=== PATIENT | female | born 1965 | race Caucasian/White ===

== ENCOUNTER 2021-09-27 11:25 | Emergency (ER) | payer OTHER, SELFPAY ==
--- NOTE | ~2021-09-27 | XR_ITS ---
EXAMINATION: XR foot RT min 3V, XR ankle RT min 3V EXAM DATE: 09/27/2021 12:20 (accession [id number]), 09/27/2021 12:22 (accession [id number]) INDICATION: Right medial ank/foot bruising, swelling, pain after injury yesterday. Initial encounter. TECHNIQUE: Right foot dorsoplantar, lateral and oblique projections obtained and reviewed. Right ank le frontal, lateral and oblique projections obtained and reviewed. There is no prior study for raven zamora. FINDINGS: There is acute closed posttraumatic oblique fracture through the right fibular distal metap hysis extending into the distal tibiofibular syndesmosis. There is overlying soft tissue swelling. Th is finding has been indicated, marked on the examination for review, clinical correlation. Mortise re lationship appears maintained. Right foot exam demonstrates small ossification along the dorsal aspect of the metatarsal bases at th e Lisfranc joint, age indeterminate but could be an acute minimally displaced avulsion fracture. Unce rtain exact donor site. There is swelling overlying the dorsal aspect of the forefoot including this location. Phalanges are unremarkable. IMPRESSION: 1. Acute nondisplaced right fibular distal metaphyseal fracture into syndesmosis. 2. Minimally displaced metatarsal base avulsion dorsally. Reviewed, dictated and finalized at location B. ER PLACER IMPRESSION: 1. Acute nondisplaced right fibular distal metaphyseal fracture into syndesmos is. 2. Minimally displaced metatarsal base avulsion dorsally.
[2021-09-27 11:36] VITALS: BP 175/111; PULSE 106; RESP 18; TEMP 36.4; O2SAT 97
[2021-09-27] MEDS: KETOROLAC (*BKC) 60 MG/2 ML VIAL IM (11:57)
[2021-09-27 11:58] VITALS: PULSE 106
[2021-09-27] MEDS: METOPROLOL TARTRATE 50 MG TAB PO (11:58)
[2021-09-27 12:02] VITALS: PULSE 106
--- NOTE | 2021-09-27 12:46 | ED.LOWEXIN ---
HPI - Extremity Injury (Lower) General Chief Complaint: Extremity Injury, Lower Stated Complaint: ANKLE PAIN Source: patient Mode of arrival: ambulatory Limitations: no limitations History of Present Illness HPI Narrative: is a 56-year-old female that while out in her yd misstepped and twisting her right foot and ankle causing pain with bruising and swelling has occurred this past Friday, swelling continues with some pain about a 6/10 tried some [id number] medication with minimal relief a blood pressure has been elevated with no chest pain no shortness of breath no abdominal pain. In her right foot and ankle there is a decreased range of motion secondary to bruising swelling with no numbness or tingling. complaint: ankle injury Onset (ago): day(s) Injury: Right: ankle ( pain with swelling and decreased range of motion) and foot ( bruising of the foot and swelling) Type of Injury: inversion Place: home Severity: moderate Severity scale (1-10): 6 Relieving factors: NSAID Related Data Allergies Allergy/AdvReac Type Severity Reaction Status Date / Time No Known Allergies Allergy Verified 09/27/21 11:54 Review of Systems Review of Systems: All systems reviewed & are unremarkable except as noted in HPI and below PMFSH Past Medical History Medical History HTN (hypertension) Exam Const: General: no acute distress HENMT: Head: normal to inspection Eyes: Conjunctivae: conjunctivae normal Pupils: Equal, round and reactive pupils present EOM: EOMs intact bilaterally Neck: Neck: normal visual inspection, no lymphadenopathy and no meningeal signs Chest: Chest palpation & inspection: normal inspection of the chest Resp: Effort & Inspection: normal respiratory effort Auscultation: clear to auscultation bilaterally Cardio: Rate: regular rate Rhythm: regular rhythm GI: GI Palp: Yes Soft to palpation Back/Spine/Pelvis: Back: no CVA tenderness Skin: General skin exam: normal color Rashes: no rashes Extrem: General: edema Other: right foot and ankle swelling and decreased range of motion secondary to bruising and swelling Psych: Mental Status: mental status grossly normal Affect: normal affect Course Course Emergency Course: patient had x-rays performed showing acute fracture of the distal right fibula nondisplaced patient did receive IM Toradol and a dose of Lopressor for elevated blood pressure. Vital Signs Vital signs: Vital Signs Temperature 36.4 C 09/27/21 11:36 Pulse Rate 106 H 09/27/21 11:36 Respiratory Rate 18 09/27/21 11:36 Blood Pressure 175/111 H 09/27/21 11:36 Pulse Oximetry 97 09/27/21 11:36 Temperature 36.4 C 09/27/21 11:36 Pulse Rate 106 H 09/27/21 12:02 Respiratory Rate 18 09/27/21 11:36 Blood Pressure 175/111 H 09/27/21 11:36 Pulse Oximetry 97 09/27/21 11:36 Critical Care Time Critical Care Time Critical Care Time: No Discharge Plan Discharge Clinical Impression: HTN (hypertension) Qualifiers: Hypertension type: unspecified Qualified Code(s): I10 - Essential (primary) hypertension Closed fibular fracture Qualifiers: Encounter type: initial encounter Fibula location: distal Fracture morphology: other fracture Laterality: right Qualified Code(s): S82.831A - Other fracture of upper and lower end of right fibula, initial encounter for closed fracture Patient Disposition: Home, Self-Care Condition: Stable Instructions: Antibiotic Form, Ankle Fracture (ED) Additional Instructions: take medicine as prescribed and follow with some orthopedic physician for further evaluation and treatment. Prescriptions: New oxycodone-acetaminophen [Percocet] 5-325 mg tablet 1 tablet PO Q6H PRN (Reason: pain) Qty: 14 RF: 0 Follow-up/Referrals: UNKNOWN,DOCTOR [Primary Care Provider] - Time of Disposition: 12:54
[2021-09-27 13:01] VITALS: BP 178/113; PULSE 100; RESP 20; TEMP 36.6; O2SAT 99
== END 2021-09-27 13:08 | disposition home or self-care (01) ==
PROVIDERS: Emergency Provider Emergency Medicine
DX: S82.831A Other fracture of upper and lower end of right fibula, initial encounter for closed fracture (principal); I10 Essential (primary) hypertension; X50.1XXA Overexertion from prolonged static or awkward postures, initial encounter
CPT/HCPCS: 73610; 73630; 96372; 99283; A9270; J1885

== ENCOUNTER 2025-05-10 13:50 | Outpatient (CLI) | payer MEDICAID, SELFPAY ==
--- OUTSIDE RECORDS SUMMARY | 2025-05-10 13:54 | XMS_ITS | Clinical Summary ---
Author Organization [facility] Address [address] [place] [address] Care Team Providers Care Personnel Analyst Name Role Phone Unavailable Primary Care Provider Unavailabl e Allergies Active Allergy Reactions Criticality Noted Date Comments Hydrocodone-Acetaminophen Itching Low 02/01/2024 Medications atenoloL (TENORMIN) 25 mg tablet Take 0.5 Tablets (12.5 mg) by mouth every 12 hours. 4 Active lactulose (ENULOSE) 20 gram/30 mL Take 10 mL by mouth 2 times daily. 4 Active ipratropium-albu teroL (DUONEB) 0.5 mg-3 mg(2.5 mg base)/3 mL Solution for Nebulization Take 3 mL by inhalation every 6 hours as needed for Shortness of Breath or Wheezing. 4 Active furosemide (LASIX) 20 mg tablet Take 1 Tablet (20 mg) by mouth daily. 4 Active multivitamin with folic acid 400 mcg Tablet tablet Take 1 Tablet by mouth daily. 4 Active rifAXIMin (XIFAXAN) 550 mg Tablet Take 1 Tablet (550 mg) by mouth 2 times daily. 4 Active spironolactone (ALDACTONE) 50 mg tablet 1 Tablet (50 mg) by NG Tube route daily. 4 Active Additional Information Patient taking differently:50 mgOralDAILY, Reported on 01/14/2024 Active Problems Problem Noted Date Diagnosed Date History of falling 01/14/2024 Hypotension due to hypovolemia 01/14/2024 Hypokalemia 01/14/2024 Generalized muscle weakness 12/29/2023 Steroid-induced hyperglycemia 12/28/2023 Acute respiratory failure with hypoxia Shock 12/27/2023 Leukocytosis 12/27/2023 E. coli UTI (urinary tract infection) 12/27/2023 Anemia 12/27/2023 Macrocytic anemia 12/22/2023 Alcohol abuse 12/22/2023 Elevated liver enzymes 12/22/2023 Hyponatremia 12/20/2023 Alcoholic cirrhosis of liver without ascites 08/2024 Portal vein thrombosis 12/20/2023 OLIVE (acute kidney injury) 12/20/2023 Hepatic encephalopathy 12/20/2023 Ascites due to alcoholic cirrhosis 12/20/2023 Social History Tobacco Use Types Packs/Day Years Used Date Smoking Tobacco: Unknown Passive Smoke Exposure: Past Tobacco Cessation:Counseling Given: Not Answered Alcohol Use Standard Drinks/Week Comments Not Currently 5 (1 standard drink = 0.6 oz pur e alcohol) Feeling Safe Answer Date Recorded Are you in a relationship wi th someone who hurts you emotionally and/or physically? 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 Gender Identity Not on file Sexual Orientation Not on file Last Filed Vital Signs Vital Sign Reading Time Taken Comments Blood Pressure 116/77 02/01/2024 1:12 PM CDT Pulse 95 02/01/2024 11:40 AM CDT Temperature 36.7 C (98 F) 02/01/2024 5:58 AM CDT Respiratory Rate 14 02/01/2024 11:40 AM CDT Oxygen Saturation 100% 02/01/2024 11:40 AM CDT Inhaled Oxygen Concentration - - Weight 64 kg (141 lb) 02/01/2024 5:43 AM CDT Height 167.6 cm (5' 6) 02/01/2024 5:43 AM CDT Body Mass Index 22.76 02/01/2024 5:43 AM CDT Plan of Treatment Health Maintenance Due Date Last Done Comments DTAP/TDAP/TD VACCINES (1 - Tdap) 1985 HEPATITIS B VACCINES (1 of 3 - 19+ 3-dose series) 06/1985 HPV/Cotest (21-29) 1987 CERVICAL CANCER SCREENING 1996 HPV/Cotest (30-65) 1996 PAP SMEAR 1996 BREAST CANCER SCREENING 2006 COLORECTAL SCREENING 2011 Colorectal Cancer Screening 2011 FIT-DNA Q 3 years 2011 FIT/FOBT Q 1 year 2011 Flex Sig/CT Colonography Q 5 years 2011 ZOSTER VACCINE (1 of 2) 2016 INFLUENZA VACCINE (#1) 2024 Advance Directives For more information, please contact: [phone] Documents on File Type Date Recorded Patient Software Design Engineer Expl anation Advance Directive POA 01/19/2024 9:23 AM A dvance Directive POA * Full Code (Latest Code Status on File) Date Activated Date Inactivated Comments 01/14/2024 1:30 AM 01/15/2024 7:18 PM * Full Code Date Activated Date Inactivated Comments 12/20/2023 1:28 AM 01/06/2024 7:21 PM * Default Full Code - Needs Discussion Date Activated Date Inactivated Comments 12/19/2023 11:33 PM 12/20/2023 1:28 AM
--- OUTSIDE RECORDS SUMMARY | 2025-05-10 13:54 | XMS_ITS | Clinical Summary ---
Author Organization [facility] Address [address] [facility] [place] [address] Care Team Providers Care Continuous Miner Operator Helper Name Role Phone Cecilia Dent RN Primary Care Provider Unavaila ble Source Comments [facility],non-owned Affiliates and Associated Physician Practices is amultiple site organization consisting of ambulatory clinics and hospital sitesin [place], [place], [place] and [place]. This disclosure is being madepursuant to the Care Everywhere program and may not contain all information available regarding this patient. 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 Gender Identity Not on file Sexual Orientation Not on file Last Filed Vital Signs Vital Sign Reading Time Taken Comments Blood Pressure - - Pulse - - Temperature - - Respiratory Rate - - Oxygen Saturation - - Inhaled Oxygen Concentration - - Weight 65.8 kg (145 lb) 02/21/2016 9:25 AM CDT Height 165.1 cm (5' 5) 02/21/2016 9:25 AM CDT Body Mass Index 24.13 02/21/2016 9:25 AM CDT Plan of Treatment Health Maintenance Due Date Last Done Comments COLOGUARD (AGES 45-75) - COL ON CA SCREENING 1966 COLON MONITORING 1966 COLONOSCOPY - COLON CA SCREENING 1966 CT COLONOGRAPHY - COLON CA SCREENING 1966 Colorectal Cancer Screening 1966 FIT - COLON CA SCREENING 1966 FLEX SIG - COLON CA SCREENING 1966 LIPID TESTING 1966 MAMMOGRAM 1966 HIV SCREENING 1981 HEPATITIS C SCREENING 06/12/1984 DTAP/TDAP/TD VACCINES (1 - Tdap) 1985 HEPATITIS B VACCINE (1 of 3 - 19+ 3-dose series) 1985 PNEUMOCOCCAL VACCINE 50+ (1 of 2 - PCV) 1985 PAP SMEAR 1987 ZOSTER VACCINE (1 of 2) 2016 COVID-19 VACCINE (1 - 2023-2 5 season) 2024 DEPRESSION SCREENING 11/10/2024 INFLUENZA VACCINE (Season Ended) 2025 HIB VACCINE Aged Out No longer eligi ble based on patient's age to complete this topic HPV VACCINE Aged Out No longer eligi ble based on patient's age to complete this topic MENINGOCOCCAL (Group B) VACC INE SHARED DECISION-MAKING Aged Out No longer eligibl e based on patient's age to complete this topic MENINGOCOCCAL GROUPS A/C/Y/W VACCINE Aged Out No longer eligible b ased on patient's age to complete this topic Insurance [place] MEDICAID - UHC COMMUNITY PLAN Care Teams Continuous Miner Operator Helper Relationship Specialty Start Date End Date Cecilia Dent, RN PCP - General 01/30/16
--- OUTSIDE RECORDS SUMMARY | 2025-05-10 13:54 | XMS_ITS | Encounter Summary ---
Author Organization [facility] Address [address] [place] [address] Care Team Providers Care Booster Station Operator Name Role Phone Unavailable Primary Care Provider Unavailabl e Reason for Visit * Reason Onset Date Comments Portal vein thrombosis, cirrhosis 12/23/2023 Spoke w/Farzaneh at Dr. Murphy's office Encounter Details Date Type Department Care Team (Late st Contact Info) Description 12/23/2023 Telephone [facility] Admitting [address] [place] [address] [place] [address] [place] [address] Portal vein thrombosis, cirrhosis (Spoke w/Farzaneh at Dr. Murphy's office) Social History Tobacco Use Types Packs/Day Years Used Date Smoking Tobacco: Never Assessed Feeling Safe Answer Date Recorded Are you in a relationship wi th someone who hurts you emotionally and/or physically? 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
[2025-05-10 14:00] LABS: Add Urine Microscopic? YES; Appearance Urine Clear (Clear); Glucose Urine UA Negative (Negative); Leukocyte Esterase Ur 2+ LEU/UL (Negative); Nitrate Urine Negative (Negative); Specific Grav Ur <= 1.005 (1.010-1.020)
--- OUTSIDE RECORDS SUMMARY | 2025-05-10 14:03 | XMS_ITS | Clinical Summary ---
Author Organization [facility] Address [address] [place] [address] Care Team Providers Care Sonar Subsystem Equipment Operator Name Role Phone Cecilia Dent MD Primary Care Provider Allergies Active Allergy Reactions Criticality Noted Date Comments Baclofen Nausea and Vomiting Low 02/21/2016 Meloxicam Swelling,Other (see comment) Low 016 Throat swells Medications metoprolol succinate ER 25 MG 24 hr tablet Take 25 mg by mouth daily. 09/28/2021 Active lisinopril 20 MG tablet Take 1 tablet by mouth daily. 09/28/2021 Active oxyCODONE-acetam inophen 5-325 MG tabletIndication s:Acute Pain < 7 Day Supply Take 1 tablet by mouth every 6 (six) hours as needed for Pain. Indications : Acute Pain < 7 Day Supply 20 tablet 10/30/2021 Active Active Problems Problem Noted Date Diagnosed Date Other closed fracture of dis deven end of right fibula, initial encounter 10/15/2021 Family History Medical History Relation Comments Hypertension Father Arthritis Mother Hypertension Mother No Known Problems Sister Relation Status Comments Father Alive Mother Alive Sister Alive Social History Tobacco Use Types Packs/Day Years Used Date Smoking Tobacco: Every Day Cigarettes 0.5 25 Smokeless Tobacco: Never Tobacco Cessation:Ready to Q uit: No; Counseling Given: No Alcohol Use Standard Drinks/Week Comments Yes 0 (1 standard drink = 0.6 oz pur e alcohol) Comments Unknown Sex and Gender Information Value Date Recorded Sex Assigned at Not on file Legal Sex Female 5:29 PM CDT Gender Identity Not on file Sexual Orientation Not on file Last Filed Vital Signs Vital Sign Reading Time Taken Comments Blood Pressure 116/68 03/04/2016 12:01 PM CDT Pulse 112 12/28/2015 12:33 PM TECHNOLOGY INSTRUCTOR Temperature - - Respiratory Rate - - Oxygen Saturation - - Inhaled Oxygen Concentration - - Weight 64 kg (141 lb) 11/16/2021 11:43 AM TECHNOLOGY INSTRUCTOR Height 165.1 cm (5' 5) 11/16/2021 11:43 AM TECHNOLOGY INSTRUCTOR Body Mass Index 23.46 11/16/2021 11:43 AM TECHNOLOGY INSTRUCTOR Plan of Treatment Health Maintenance Due Date Last Done Comments Cervical Cancer Screening Pa p Smear (Age 30 to 64) Every 3 Years 1966 Colorectal Cancer Screening Colonoscopy (10 Years) 1966 Annual Physical 1969 DTaP, Tdap and Td Vaccines ( 1 - Tdap) 1985 Hepatitis B Vaccines (1 of 3 - 19+ 3-dose series) 1985 Pneumococcal Vaccine: 50+ Ye ars (1 of 2 - PCV) 1985 Cervical Cancer Screening Pa p with HPV Testing (Age 30 to 64) Every 5 Years 1996 Cervical Cancer Screening with HPV 1996 Mammogram Screening 2006 Zoster Vaccines (1 of 2) 2016 COVID-19 Vaccine ( - 2023-2 5 season) 2024 Hepatitis C Completed 12/20/2023 Meningococcal B Vaccine Aged Out No l onger eligible based on patient's age to complete this topic Meningococcal Vaccine Aged Out No mulu jake eligible based on patient's age to complete this topic RSV Immunizations Under 20 Months Aged Out No longer eligible based on patient's age to complete this topic Insurance Care Teams Sonar Subsystem Equipment Operator Relationship Specialty Start Date End Date Cecilia Dnet MD PCP - General 03/11/16
[2025-05-10 14:24] LABS: Hematocrit 41.7 % (35.0-49.0); Hemoglobin 13.8 g/dL (12.0-15.0); Immature Granulocyte Percent A 0.5 % (0.0-0.0); Lymphocytes Absolute Auto 3.85 K/mm3 (1.10-4.50); Mean Corpuscular HGB Conc 33.1 g/dL (32-36); Mean Corpuscular Hemoglobin 30.7 pg (27.0-31.0); Mean Corpuscular Volume 92.7 fL (78.0-102.0); Nucleated Red Blood Cells Absolute Auto 0.00 K/mm3 (0.00-0.00); Nucleated Red Blood Cells Perc 0.0 % (0-0.0); Platelet Count Result 262 K/mm3 (150-420); Red Blood Count 4.50 M/mm3 (4.20-5.40); White Blood Count 10.7 K/mm3 (4.8-10.8)
[2025-05-10 14:33] LABS: Hemoglobin A1C. 6.4 % (<5.7)
[2025-05-10 14:42] LABS: Alanine Aminotransferase 25 U/L (6-35); Albumin Level 4.0 g/dL (3.5-5.1); Alkaline Phosphatase 131 U/L (38-126); Anion Gap 5 mmol/L (4-12); Aspartate Amino Transferase 34 U/L (14-36); Bilirubin,Total 0.5 mg/dL (0.2-1.3); Blood Urea Nitrogen 5 mg/dL (7-17); Calcium 8.9 mg/dL (8.4-10.2); Carbon Dioxide 27 mmol/L (22-30); Chloride 99 mmol/L (98-107); Estimated Glomerular Filt Rate > 60; Glucose 159 mg/dL (65-110); HDL Direct 59 mg/dL; Iron 141 ug/dL (37-170); Osmolality Calculated 272 mOsm/kg (285-295); Potassium 3.8 mmol/L (3.4-5.0); Sodium 131 mmol/L (137-145); Total Protein 6.8 g/dL (6.3-8.2); Triglycerides 440 mg/dL (<150)
[2025-05-10 14:43] LABS: Cholesterol > 325 mg/dL (0-200)
[2025-05-10 14:52] LABS: Percent Iron Saturation 38 % (20-50)
[2025-05-10 15:13] LABS: Thyroid Stimulating Hormone Reflex 1.040 uIU/mL (0.465-4.68)
[2025-05-10 15:18] LABS: Ferritin 82.00 ng/mL (11.1-264)
[2025-05-10 15:33] LABS: Vitamin B12. 300.0 pg/mL (239-931)
== END 2025-05-10 13:51 | disposition home or self-care (01) ==
PROVIDERS: PCP Nurse Practitioner Family; Visit Provider Nurse Practitioner Family
DX: Z00.00 Encounter for general adult medical examination without abnormal findings (principal); R39.9 Unspecified symptoms and signs involving the genitourinary system; Z79.899 Other long term (current) drug therapy; I10 Essential (primary) hypertension; R20.0 Anesthesia of skin; R20.2 Paresthesia of skin
CPT/HCPCS: 36415; 80053; 80061; 81001; 82306; 82607; 82728; 83036; 83540; 83550; 84443; 85025; 87086; 87186

== ENCOUNTER 2025-06-06 15:42 | Outpatient (NON) | payer MEDICAID, SELFPAY ==
--- OUTSIDE RECORDS SUMMARY | 2025-06-06 15:47 | XMS_ITS | Clinical Summary ---
Author Organization [facility] Address [address] [place] [address] Care Team Providers Care Pumper Gauger Name Role Phone Cecilia Dent RN Primary Care Provider Unavaila ble Source Comments [facility],non-owned Affiliates and Associated Physician Practices is amultiple site organization consisting of ambulatory clinics and hospital sitesin [place], [place], [place] and [place]. This disclosure is being madepursuant to the Care Everywhere program and may not contain all information available regarding this patient. Last updated 18.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
--- OUTSIDE RECORDS SUMMARY | 2025-06-06 15:47 | XMS_ITS | Clinical Summary ---
Author Organization [facility] Address [address] [place] [address] Care Team Providers Care Weapons Specialist Name Role Phone Cecilia Dent MD Primary [...] PM CDT Pulse 112 12/28/2015 12:33 PM VACUUM FORMING MACHINE OPERATOR Temperature - - Respiratory Rate - - Oxygen Saturation - - Inhaled Oxygen Concentration - - Weight 64 kg (141 lb) 11/16/2021 11:43 AM VACUUM FORMING MACHINE OPERATOR Height 165.1 cm (5' 5) 11/16/2021 11:43 AM VACUUM FORMING MACHINE OPERATOR Body Mass Index 23.46 11/16/2021 11:43 AM VACUUM FORMING MACHINE OPERATOR Plan of Treatment Health Maintenance Due Date [...] to complete this topic Insurance Care Teams Weapons Specialist Relationship Specialty Start Date End Date Cecilia Dent MD PCP - General 03/11/16
[2025-06-06 15:54] LABS: Add Urine Microscopic? YES; Appearance Urine Clear (Clear); Glucose Urine UA Negative (Negative); Leukocyte Esterase Ur Negative LEU/UL (Negative); Nitrate Urine Negative (Negative); Specific Grav Ur <= 1.005 (1.010-1.020)
== END 2025-06-06 15:43 | disposition home or self-care (01) ==
PROVIDERS: Visit Provider Nurse Practitioner Family
DX: R39.9 Unspecified symptoms and signs involving the genitourinary system (principal); R31.9 Hematuria, unspecified
CPT/HCPCS: 81001; 87086